=== PATIENT | male | born 1970 | race Hispanic/Latino ===

== ENCOUNTER 2018-12-25 22:41 | Emergency (ER) | payer SELFPAY ==
[2018-12-25] MEDS ORDERED: ASPIRIN PO ONE (22:52)
[2018-12-25 23:08] LABS: Basophils % (Auto) 0.7 % (0.0-1.8); Eosinophils # (Auto) 0.1 K/mm3 (0.0-0.4); Eosinophils % (Auto) 1.7 % (0.0-4.3); Hematocrit 38.4 % (35.5-45.6); Hemoglobin 13.1 gm/dl (11.8-15.2); Lymphocytes # (Auto) 2.4 K/mm3 (1.2-5.4); Lymphocytes % (Auto) 38.5 % (13.4-35.0); Mean Corpuscular HGB Conc 34 % (32-34); Mean Corpuscular Volume 91 fl (84-94); Monocytes # (Auto) 0.6 K/mm3 (0.0-0.8); Platelet Count 262 K/mm3 (140-440); Red Blood Count 4.22 M/mm3 (3.65-5.03); Red Cell Distribution Width 13.5 % (13.2-15.2)
[2018-12-25 23:27] LABS: Alanine Aminotransferase 29 units/L (7-56); BUN/Creatinine Ratio 18; Blood Urea Nitrogen 20 mg/dL (9-20); Calcium 8.9 mg/dL (8.4-10.2); Hemolysis Index 8
[2018-12-25 23:48] LABS: INR 1.03 (0.87-1.13)
--- NOTE | 2018-12-25 23:50 | XRay Report ---
CHEST 2 VIEWS INDICATION: Chest Pain. COMPARISON: None FINDINGS: Support devices: None. Heart: Within normal limits. Lungs/pleura: No acute air space or interstitial disease. No pneumothorax. Additional findings: None. IMPRESSION: 1. No acute findings. Signer Name: Michael Amaya MD Signed: 12/25/2018 11:45 PM Workstation Name: [id number]
--- NOTE | 2018-12-25 23:52 | Emergency Department Report ---
ED Chest Pain HPI - General Chief Complaint: Chest Pain Stated Complaint: CHEST PAIN Time Seen by Provider: 12/25/18 22:48 Source: patient, EMS Mode of arrival: Stretcher Limitations: No Limitations - History of Present Illness Initial Comments: patient was getting group therapy at a facility where he is staying for suicidal attempt, when he started to have sharp mid chest pain, without radiation. He rates pain as mild in severity. received asa in route by ems. In ER he is pain free and sleepy. no sob, diaphoresis or vomiting. He denies any past cardiac history. - Related Data Allergies Allergy/AdvReac Type Severity Reaction Status Date / Time acetaminophen Allergy Unknown Verified 12/25/18 23:05 [From Lorcet (hydrocodone)] hydrocodone Allergy Unknown Verified 12/25/18 23:05 [From Lorcet (hydrocodone)] Penicillins Allergy Unknown Verified 12/25/18 23:05 Heart Score - HEART Score History: Slightly suspicious EKG: Non-specific Age: 45-65 Risk factors: No known risk factors Troponin: < normal limit HEART Score: 2 - Critical Actions Critical Actions: 0-3 pts:0.9-1.7%risk of adverse cardiac event.Candidate for discharge ED Review of Systems ROS: Stated complaint: CHEST PAIN Other details as noted in HPI Comment: All other systems reviewed and negative ENT: denies: ear pain Respiratory: denies: cough Cardiovascular: chest pain Gastrointestinal: denies: nausea, vomiting, diarrhea ED Past Medical Hx - Past Medical History Previous Medical History?: Yes Hx GERD: Yes Hx Psychiatric Treatment: Yes (PTSD) - Surgical History Past Surgical History?: Yes Additional Surgical History: BL knee replacement, left ankle, right rotator cuff - Social History Smoking Status: Never Smoker Substance Use Type: Alcohol ED Physical Exam - General Limitations: No Limitations General appearance: alert, in no apparent distress - Head Head exam: Present: atraumatic, normocephalic - Eye Eye exam: Present: normal appearance, PERRL, EOMI Pupils: Present: normal accommodation - ENT ENT exam: Present: normal exam - Neck Neck exam: Present: normal inspection - Respiratory Respiratory exam: Present: normal lung sounds bilaterally - Cardiovascular Cardiovascular Exam: Present: regular rate, normal rhythm - GI/Abdominal GI/Abdominal exam: Present: soft, normal bowel sounds - Neurological Exam Neurological exam: Present: alert, oriented X3, CN II-XII intact - Skin Skin exam: Present: warm ED Course Vital Signs 12/25/18 12/26/18 12/26/18 22:53 00:05 01:05 Temperature 97.6 F 98.4 F Pulse Rate 75 87 89 Respiratory 18 16 16 Rate Blood Pressure 92/55 Blood Pressure 98/74 111/64 [Left] O2 Sat by Pulse 96 99 100 Oximetry 12/26/18 01:06 Temperature 98.8 F Pulse Rate 78 Respiratory 16 Rate Blood Pressure Blood Pressure 93/50 [Left] O2 Sat by Pulse 100 Oximetry ED Medical Decision Making - Lab Data Result diagrams: 12/25/18 22:58 12/25/18 22:58 Critical care attestation.: If time is entered above; I have spent that time in minutes in the direct care of this critically ill patient, excluding procedure time. ED Disposition Clinical Impression: Atypical chest pain Disposition: DC-01 TO HOME OR SELFCARE Is pt being admited?: No Does the pt Need Aspirin: No Condition: Stable Instructions: Chest Pain (ED) Referrals: JAELYN JIMENEZ MD [Staff Physician] - 24 Hours
[2018-12-26] MEDS ORDERED: LIDOCAINE VISCOUS 2% PO ONE (00:11)
[2018-12-26] MEDS ORDERED: ALUM-MAG HYDROX-SIMETH 200-200-20MG/5ML PO ONE (00:11)
[2018-12-26] MEDS ORDERED: NACL 0.9% 1000 ML 1,000 ML IV ONE (00:37)
[2018-12-26 03:06] VITALS: BP 117/64
== END 2018-12-26 02:00 | disposition home or self-care (01) ==
LOC: ED 22:41
DX: R07.89 Other chest pain (principal); K21.9 Gastro-esophageal reflux disease without esophagitis; F43.10 Post-traumatic stress disorder, unspecified; Z88.6 Allergy status to analgesic agent; Z88.0 Allergy status to penicillin
CPT/HCPCS: 36415; 71046; 80053; 84484; 85025; 85610; 85730; 99284; J7030